=== PATIENT | male | born 1960 | race Native Hawaiian/Other Pacific Islander ===

== ENCOUNTER 2016-04-06 16:31 | Observation (INO) | payer OTHER ==
[~2016-04-06] VITALS: Ht 170.2 cm; Wt 69.9 kg
[~2016-04-06 16:31] MED LIST: ALPR0.5T24 PO; PERCOCET1 TA3 PO
[2016-04-06 16:40] VITALS: BP 138/85; TEMP 98.2
[2016-04-06 17:13] LABS: PLATELET COUNT 470 K/uL (142-355)
[2016-04-06 17:20] LABS: POTASSIUM 3.6 mmol/L (3.6-5.2); SODIUM 135 mmol/L (136-145)
[2016-04-06 21:03] VITALS: BP 126/73; TEMP 97.8; Ht 170.2 cm; Wt 69.9 kg
[2016-04-06 22:00] VITALS: BP 124/78; TEMP 97.8
[2016-04-07 06:00] VITALS: BP 101/62; TEMP 98
== END 2016-04-07 07:30 | disposition other institution (70) ==
LOC: ED 16:31 → ICU 19:45
DX: R45.851 Suicidal ideations (principal); F32.89 Other specified depressive episodes; F31.89 Other bipolar disorder; I10 Essential (primary) hypertension
CPT/HCPCS: 36415; 80053; 80307; 80320; 80329; 81000; 85027; 96365; 96366; 96372; 96374; 96375; 99220; 99285; G0378; G0479; J1650; J1885; J2060; J3490